=== PATIENT | female | born 1965 | race Caucasian/White ===

== ENCOUNTER → 2020-07-25 | Outpatient (CLI) | payer OTHER ==
--- NOTE | 2020-08-13 15:41 | RAD ---
DATE: 07/25/2020 3:28 PM EXAM: MAMMO BISHOP SCREENING BILATERAL HISTORY: Screening COMPARISON: 12/14/2017 Bilateral CC and MLO views of the breasts were performed. Bilateral breast tomosynthesis was performed in CC and MLO projections. This study was interpreted with the benefit of Computerized Aided Detection (CAD). FINDINGS: Breast Density: HETERO The breast parenchyma Is heterogeneously dense, which could reduce sensitivity of mammography. Breast parenchyma level C The left mammogram shows a nodular parenchymal pattern compatible with benign cystic change. The right mammogram shows an asymmetry on tomographic image 40 on the CC projection medially and posteriorly, approximately 3.7 cm from the nipple. There is a possible second, anterior and superior asymmetry on image 20 of the right MLO projection, approximately 2.6 cm from the nipple. Both of these bear additional imaging evaluation with spot compression and a full-field lateral view, preferably with 3-D technique, and possible ultrasound. IMPRESSION: Incomplete. Right breast needs additional imaging. BI-RADS CATEGORY: 0 INCOMPLETE: NEEDS ADDITIONAL IMAGING EVALUATION AND/OR PRIOR MAMMOGRAMS FOR COMPARISON. RECOMMENDED FOLLOW-UP: ADD ADDITIONAL IMAGING The patient will be contacted to return for additional imaging and a supplemental report will follow. PQRS compliance statement: Patient information was entered into a reminder system with a target due date for the next mammogram. Mammography is a sensitive method for finding small breast cancers, but it does not detect them all and is not a substitute for careful clinical examination. A negative mammogram does not negate a clinically suspicious finding and should not result in delay in biopsying a clinically suspicious abnormality. "Our facility is accredited by the [employer] Mammography [employer]."
== END ==
LOC: MAMMO 15:00
PROVIDERS: ATTEND Nurse Practitioner Family
DX: Z12.31 Encounter for screening mammogram for malignant neoplasm of breast (principal)
CPT/HCPCS: 77063; 77067

== ENCOUNTER → 2020-08-29 | Outpatient (CLI) | payer OTHER ==
--- NOTE | 2020-08-29 15:20 | RAD ---
Examination: 1. Right digital diagnostic mammogram. 2. Right targeted breast ultrasound. INDICATION: 54-year-old woman recalled from screening for asymmetry in the right breast. COMPARISON: Screening mammogram 07/25/2020 TECHNIQUE: A full field right ML view was obtained in addition to spot compression views in the MLO and CC projections. The right mammogram was reviewed with computer-aided detection. Targeted ultrasound of the upper inner quadrant and upper outer quadrant right breast was performed in the areas of mammographic interest. FINDINGS: Heterogeneously dense breast parenchyma. The questioned asymmetry in the slightly medial right breast localized on additional mammographic views to the approximate 1:00 position 3.5 cm from the nipple and this was targeted therefore for additional imaging by ultrasound. In addition, the questioned asymmetry on the MLO view appear to localize to the right 10:00 position 2.5 cm from the nipple and was also pursued by targeted ultrasound. Targeted ultrasound of the right breast in the upper inner and upper outer quadrants identified at the 11:00 position 1.5 cm from the nipple a 4 mm oval anechoic mass with low-level internal echoes, and a bilobed oval mass 6 mm long at the 9:00 position 2.5 cm from the nipple. These are both probably benign cysts. No definite sonographic correlate to the asymmetries identified on mammography. IMPRESSION: Probably benign asymmetries in the right breast and concurrent cysts. Recommend 6 month follow-up right diagnostic mammogram and targeted right breast ultrasound. BI-RADS Category 3 Probably benign findings Patient entered into a reminder system with targeted due date for next mammogram. Electronically signed by: Rickey Shanks MD (08/29/2020 3:16 PM) [id number]
== END ==
LOC: MAMMO 13:54
PROVIDERS: ATTEND Nurse Practitioner Family
DX: R92.2 Inconclusive mammogram (principal); N63.11 Unspecified lump in the right breast, upper outer quadrant; N60.01 Solitary cyst of right breast
CPT/HCPCS: 76641; 77065; G0279; 77061

== ENCOUNTER → 2021-03-11 | Outpatient (CLI) | payer OTHER ==
--- NOTE | 2021-03-11 15:10 | RAD ---
PROCEDURE: US BREAST RT, MG DIGITAL UNILAT DIAGNOSTIC MAMMO WITH BISHOP HISTORY: The patient is 55 years old and is seen for Reason: 6 MONTH F/U RT BREAST / Spl. Instruction s: / History: . COMPARISON: July 25, 2020 and August 29, 2020 TECHNIQUE: CC and MLO views of the right breast were obtained. Images were processed by the [facility] computer-aided detection system. Right breast targeted ultrasound was also performed. DENSITY: The breast parenchyma is heterogeneously dense. This may lower the sensitivity of mammograph y. FINDINGS: Right mammogram: Previously seen asymmetry is less apparent on the current examination. Unchanged ant erior retroareolar well-circumscribed masses. Right ultrasound: Unchanged cluster of cysts within the right breast 2 cm from the nipple 9:00 positi on measures 0.7 x 0.4 cm corresponding with anterior retroareolar masses on mammogram. Additional cys t within the right breast 11:00 position 1.5 cm from the nipple measures 0.4 cm. Mild ductal dilatati on, similar compared to prior. IMPRESSION: 1. Previously seen asymmetry is less apparent on the current examination, likely overlapping fibrogl andular tissue. 2. Small anterior breast cysts, unchanged. Recommend annual screening mammograms per [employer] guidelines. Recommend return to an nual screening with follow-up at time of left breast screening mammogram approximately July 2021. BI-RADS category 2 Benign Patient entered into a reminder system for annual screening mammogram. Electronically signed by: Ozzy Hunter DO (03/11/2021 3:08 PM) [id number]
== END ==
LOC: MAMMO 14:04
PROVIDERS: ATTEND Nurse Practitioner Family
DX: N63.11 Unspecified lump in the right breast, upper outer quadrant (principal); N60.01 Solitary cyst of right breast; N64.89 Other specified disorders of breast
CPT/HCPCS: 76641; 77065; G0279; 77061

== ENCOUNTER → 2021-08-12 | Outpatient (CLI) | payer OTHER ==
--- NOTE | 2021-08-13 13:37 | RAD ---
BILATERAL DIGITAL SCREENING 2-D AND 3-D MAMMOGRAM INDICATION: Routine screening. COMPARISON: . March 11 2021, and August 29, 2020, December 14, 2017 and March 07, 2014 Interpretation was made using CAD. FINDINGS: Breast Density: The breasts are heterogeneously dense, which may obscure small masses. RIGHT BREAST: There are 2 stable oval circumscribed subcentimeter masses in the upper outer subareola r region. No suspicious masses, calcifications or areas of architectural distortion are seen. LEFT BREAST: No suspicious masses, calcifications or areas of architectural distortion are seen. IMPRESSION: 1. No imaging evidence of malignancy. ASSESSMENT: BI-RADS 2. Benign findings RECOMMENDATION: Routine annual screening mammogram. The facility will notify the patient of the results via mail. Patient information will be entered int o the mammography reminder system with a target recall date for the next mammogram. A reminder letter will be generated by the facility. Electronically signed by: Sirisha Heaton MD (08/13/2021 1:35 PM) [id number]
== END ==
LOC: MAMMO 14:34
PROVIDERS: ATTEND Nurse Practitioner Family
DX: Z12.31 Encounter for screening mammogram for malignant neoplasm of breast (principal)
CPT/HCPCS: 77063; 77067